=== PATIENT | female | born 1975 | race African-American/Black ===

== ENCOUNTER 2019-07-27 08:06 | Inpatient (IN) ==
[2019-07-27 08:54] LABS: BILIRUBIN URINE NEGATIVE (NEGATIVE); BLOOD URINE 3+ (NEGATIVE); CLARITY SL. CLOUDY (CLEAR); COLOR YELLOW; GLUCOSE URINE NEGATIVE (NEGATIVE); KETONE URINE 3+(Large) mg/dL (NEGATIVE); LEUKOCYTES URINE 1+ (NEGATIVE); NITRITE URINE NEGATIVE (NEGATIVE); PH URINE 6.5; PROTEIN URINE 1+(30 mg/dL) mg/dL (NEGATIVE); UROBILINOGEN URINE 1 mg/dL
[2019-07-27 08:56] LABS: BASO# 0.01 X1000 (0.0-0.2); BASO% 0.1 % (0.0-0.8); EOS# 0.04 X1000 (0.0-0.7); EOS% 0.3 % (0.0-10.0); HEMATOCRIT 39.5 % (37.0-47.0); HEMOGLOBIN 12.6 g/dL (12.0-16.0); IMM GRAN# 0.03 X1000 (0.0-0.04); IMM GRAN% 0.2 % (0.0-0.5); LYMPH# 1.72 X1000 (1.2-3.4); LYMPH% 12.3 % (20.5-51.1); MCH 28.5 PG (27-31); MCHC 31.9 g/dL (33-37); MCV 89.4 FL (81-99); MONO# 0.87 X1000 (0.11-0.59); MONO% 6.2 % (1.7-9.3); MPV 10.2 FL (7.4-10.4); NEUT# 11.32 X1000 (1.4-6.5); NEUT% 80.9 % (42.2-75.2); PLT 329 X1000 (130-400); RBC 4.42 XMIL (4.2-5.4); RDW 12.6 % (11.5-14.5); WBC 13.99 X1000 (4.8-10.8)
[2019-07-27 09:00] LABS: URINE BACTERIA 4+ /HFP; URINE CAST NONE SEEN /LPF; URINE CRYSTAL NONE SEEN /HPF; URINE EPITHELIAL CELLS >10 /HPF (<10); URINE RBC <10 /HPF (<10); URINE SOURCE CLEAN CATCH; URINE WBC TNTC /HPF (<10); URINE YEAST NONE SEEN /HPF
[2019-07-27 09:04] LABS: AGAP 13; ALBUMIN 3.8 g/dL (3.5-5.0); ALKALINE PHOSPHATASE 85 U/L (32-104); BUN 11 mg/dL (8-22); CALCIUM 9.2 mg/dL (8.8-10.2); CHLORIDE 102 mmol/L (98-107); COSMO 271; CREATININE 0.7 mg/dL (0.5-0.9); ESTIMATED GFR > 60; GLUCOSE 95 mg/dL (70-104); GOT 12 U/L (10-30); GPT 12 U/L (10-36); LIPASE 36 U/L (13-60); POTASSIUM 4.1 mmol/L (3.5-5.1); SODIUM 136 mmol/L (136-145); TCO2 21 mmol/L (25-35); TOTAL PROTEIN 7.7 g/dL (6.3-8.3)
[2019-07-27 09:16] LABS: BANDS 1 % (0-1); LYMPHS 11 % (21-51); MONO 4 % (1-9); SEGS 84 % (42-75)
--- NOTE | 2019-07-27 10:26 | Diag Imaging Result Doc PS360 ---
EXAM: CT ABD/PELVIS W/IV CONT ONLY HISTORY: LLQ abdo pain TECHNIQUE: This exam was performed using automated exposure control, adjustment of mA or kV according to patient size, and/or use of iterative reconstruction technique. COMPARISON: None. FINDINGS: Lung bases: Unremarkable. Hepatobiliary: There is a focal hypodensity measuring 3.3 cm within the left lobe of the liver. This is indeterminate and could be inflammatory or neoplastic. Consider follow-up MRI with contrast. No intrahepatic or extrahepatic biliary ductal dilatation is identified. No calcified gallstones are seen.. There is diffuse wall thickening involving the sigmoid colon with moderate pericolonic inflammatory change and moderate free pelvic fluid consistent with acute diverticulitis. No abscess. No evidence for bowel obstruction. Pancreas/Adrenal glands/Spleen: Normal size and enhancement. No cysts or solid masses are appreciated. Kidneys: No nephrolithiasis or hydronephrosis is appreciated. Normal bilateral enhancement. No suspicious masses. Retroperitoneum: Normal caliber aorta. No lymphadenopathy. Appendix: Normal. No evidence for acute appendicitis. No pneumoperitoneum is identified. Pelvis: Reproductive organs show no acute abnormality. Urinary bladder is unremarkable. No acute bony abnormality is demonstrated. IMPRESSION: 1.Acute sigmoid diverticulitis. No evidence for free air or abscess. 2. Moderate free pelvic fluid. 3. Indeterminate lesion left lobe of the liver suggestive of focal hepatitis or infiltrative process. Cannot exclude neoplasm. Correlate clinically. Consider follow-up hepatic MRI with contrast. Electronically signed by Dolores Schuster 07/27/2019 10:24 AM
--- NOTE | 2019-07-27 11:11 | PROVIDER DOCUMENTATION ---
This chart was entered by Dalila Reyes Scribe, acting as scribe for Yadiel Sanchez MD. HPI-Abdominal Pain/GI Problem - General Chief Complaint: Abdominal Pain Stated Complaint: STOMACH PAIN Time Seen by Provider: 07/27/19 08:17 Source: patient Allergies/Adverse Reactions: Patient Allergies Allergy/AdvReac Type Severity Reaction Status Date / Time Penicillins Allergy HIVES Verified 03/29/19 17:14 Sulfa (Sulfonamide Allergy SWELLING Verified 03/29/19 17:14 Antibiotics) Home Medications: Home Medication List Medication Instructions Recorded Confirmed Last Taken Type Ciprofloxacin HCl [Cipro] 250 mg PO BID 07/27/19 07/27/19 Unknown History Metronidazole [Flagyl] 500 mg PO BID 07/27/19 07/27/19 Unknown History - History of Present Illness-ABD Nature of Presenting Problems: Patient is a 43 year old female who presents with LLQ abdominal pain. States nausea with abdominal pain. Reports symptoms have been present for 3 days. Denies vomiting and diarrhea. History of diverticulitis. Abdominal Pain Onset Location: reports: LLQ Pain Radiation: reports: no radiation Quality of Pain: reports: aching Severity in ED: reports: moderate Onset/Duration: reports: 3 days ago Timing: reports: still present, getting worse Activities at Onset: reports: light activity Modifying Factors: improves with: nothing Associated Symptoms: reports: nausea Last BM: this morning Bruising or Bleeding Gums?: No Similar Symptoms Previously?: Yes Recently seen or treated by another doctor?: No Review of Systems - Adult - REVIEW OF SYSTEMS - ADULT Constitutional: reports: no symptoms reported. denies: chills, fever, fatique Eyes: reports: no symptoms reported Ears, Nose, Mouth & Throat: reports: no symptoms reported Cardiovascular: reports: no symptoms reported Respiratory: reports: no symptoms reported Gastrointestinal: reports: see HPI, abdominal pain (LLQ), nausea. denies: diarrhea, vomiting Genitourinary: reports: no symptoms reported Musculoskeletal: reports: no symptoms reported Integumentary: reports: no symptoms reported Neurological: reports: no symptoms reported Psychiatric: reports: no symptoms reported Endocrine: reports: no symptoms reported Hematologic/Lymphatic: reports: no symptoms reported Allergic/Immunologic: reports: no symptoms reported All Other Systems: Reviewed and Negative Past History - Adult - PAST MEDICAL HISTORY-ADULT Review of Records: reports: Old Records Reviewed, Social history reviewed & non- contributory. Major Childhood Illnesses: reports: denies history Cardiovascular: reports: HTN Respiratory: reports: denies history Gastrointestinal: reports: other (diverticulitis). denies: colitis Obstetrical/Gynecological: reports: denies history Genitourinary: reports: denies history Musculoskeletal: reports: denies history Neurological: reports: denies history Psychiatric: reports: denies history Endocrine/Immune: reports: denies history Other Conditions: reports: denies history - PRIOR SURGERIES/PROCEDURES Surgical/Procedure History: reports: none - IMMUNIZATION STATUS Childhood Immunizations: See Nurse Assessment Flu Vaccine: See Nurse Assessment - FAMILY HISTORY Family History: reviewed, not pertinent, cancer (pancreatic and liver cancer) - SOCIAL HISTORY Smoking: denies Substance Use: alcohol Alcohol Use Frequency: occasionally Physical Exam-General - PHYSICAL EXAM-ADULT Initial Vital Signs Reviewed: Yes - CONSTITUTIONAL General Appearance: alert, mild distress. negative: lethargic - HEAD, EARS, NOSE, MOUTH & THROAT HENMT: normocephalic/atraumatic, moist mucous membranes. negative: angioedema - RESPIRATORY Respiratory: chest non-tender, lungs clear, normal breath sounds. negative: crackles, rhonchi, stridor - CARDIOVASCULAR Cardiovascular: normal peripheral pulses, regular rate, rhythm. negative: tachycardia - GASTROINTESTINAL (ABDOMEN) Abdominal Exam: normal bowel sounds, soft, tenderness (moderate tenderness to LLQ). negative: guarding, rigid - MUSCULOSKELETAL Extremity: normal inspection. negative: deformity, erythema, swelling - SKIN Integumentary: normal color, normal turgor, warm/dry. negative: diaphoresis, ecchymosis, jaundice, rash - NEUROLOGIC Neurologic: grossly normal. negative: aphasia, facial droop - PSYCHIATRIC Psych/Mental Status: normal mood/affect, oriented x 3. negative: anxious Progress - PLAN OF CARE/RESULTS Progress/Plan/Lab Results: Vital Signs - 8 hr 07/27/19 08:12 Temperature 98 F Pulse Rate 118 H Respiratory Rate 18 Blood Pressure 128/86 O2 Sat by Pulse Oximetry 97 Bedside Urine ED: Urine Bedside Start: 07/27/19 08:15 Freq: ORDERED Status: Active Protocol: Activity Type Activity Date Activity User E-Sign Co-Sign Detail Recorded Client Recorded Date Recorded By Document 07/27/19 08:35 [id number] 07/27/19 08:35 [id number] 07/27/19 08:35 Point of Care [Bedside Point of Care] -Lot # [id number] - Results Negative -Control Line Visible? Yes Laboratory Results - last 24 hr 07/27/19 07/27/19 07/27/19 08:29 08:32 08:32 WBC 13.99 H RBC 4.42 Hgb 12.6 Hct 39.5 MCV 89.4 MCH 28.5 MCHC 31.9 L RDW Std Deviation 12.6 Plt Count 329 MPV 10.2 Immature Gran % (Auto) 0.2 Neut % (Auto) 80.9 H Lymph % (Auto) 12.3 L [place] % (Auto) 6.2 Eos % (Auto) 0.3 Baso % (Auto) 0.1 Immature Gran # (Auto) 0.03 Neut # (Auto) 11.32 H Lymph # (Auto) 1.72 [place] # (Auto) 0.87 H Eos # (Auto) 0.04 Baso # (Auto) 0.01 Segmented Neutrophils 84 H Band Neutrophils 1 Lymphocytes 11 L Monocytes 4 Sodium Potassium Chloride Carbon Dioxide Anion Gap BUN Creatinine Estimated GFR/1.73 m2 BUN/Creatinine Ratio Glucose Calculated Osmolality Calcium Total Bilirubin AST ALT Alkaline Phosphatase Total Protein Albumin Globulin Albumin/Globulin Ratio Amylase 79 Lipase Urine Source CLEAN CATCH Urine Color YELLOW Urine Clarity SL. CLOUDY A Urine pH 6.5 Ur Specific [place] 1.020 Urine Protein 1+(30 mg/dL) A Urine Ketones 3+(Large) A Urine Blood 3+ A Urine Nitrite NEGATIVE Urine Bilirubin NEGATIVE Urine Urobilinogen 1 Urine Microscopic RBC <10 Urine WBC 1+ A Urine Microscopic WBC TNTC A Ur Epithelial Cells >10 A Urine Crystals NONE SEEN Urine Bacteria 4+ Urine Casts NONE SEEN Urine Yeast NONE SEEN Urine Glucose NEGATIVE 07/27/19 08:32 WBC RBC Hgb Hct MCV MCH MCHC RDW Std Deviation Plt Count MPV Immature Gran % (Auto) Neut % (Auto) Lymph % (Auto) [place] % (Auto) Eos % (Auto) Baso % (Auto) Immature Gran # (Auto) Neut # (Auto) Lymph # (Auto) [place] # (Auto) Eos # (Auto) Baso # (Auto) Segmented Neutrophils Band Neutrophils Lymphocytes Monocytes Sodium 136 Potassium 4.1 Chloride 102 Carbon Dioxide 21 L Anion Gap 13 BUN 11 Creatinine 0.7 Estimated GFR/1.73 m2 > 60 BUN/Creatinine Ratio 16 Glucose 95 Calculated Osmolality 271 Calcium 9.2 Total Bilirubin 0.30 AST 12 ALT 12 Alkaline Phosphatase 85 Total Protein 7.7 Albumin 3.8 Globulin 4.0 Albumin/Globulin Ratio 1.0 Amylase Lipase 36 Urine Source Urine Color Urine Clarity Urine pH Ur Specific [place] Urine Protein Urine Ketones Urine Blood Urine Nitrite Urine Bilirubin Urine Urobilinogen Urine Microscopic RBC Urine WBC Urine Microscopic WBC Ur Epithelial Cells Urine Crystals Urine Bacteria Urine Casts Urine Yeast Urine Glucose Orders Category Date Time Status ED: Urine Bedside ORDERED Care 07/27/19 08:[address] ABD/PELVIS W/IV CONT ONLY [CT] Stat Exams 07/27/19 08:27 Ordered AMYLASE [CHEM] Stat Lab 07/27/19 08:32 Completed CBC WITH DIFF [HEME] Stat Lab 07/27/19 08:32 Completed COMPREHENSIVE METABOLIC PANEL [CHEM] Stat Lab 07/27/19 08:32 Completed LIPASE [CHEM] Stat Lab 07/27/19 08:[address] W/POSS RFLX CULT [URINALYSIS] Stat Lab 07/27/19 08:29 Completed URINE CULTURE [RM] Routine Lab 07/27/19 09:00 Ordered Result Diagrams: 07/27/19 08:32 07/27/19 08:32 - CT/MRI 1 CT Study: Abdomen, Pelvis Impression: See EMR Report ( EXAM: CT ABD/PELVIS W/IV CONT ONLY HISTORY: LLQ abdo pain TECHNIQUE: This exam was performed using automated exposure control, adjustment of mA or kV according to patient size, and/or use of iterative reconstruction technique. COMPARISON: None. FINDINGS: Lung bases: Unremarkable. Hepatobiliary: There is a focal hypodensity measuring 3.3 cm within the left lobe of the liver. This is indeterminate and could be inflammatory or neoplastic. Consider follow-up MRI with contrast. No intrahepatic or extrahepatic biliary ductal dilatation is identified. No calcified gallstones are seen.. There is diffuse wall thickening involving the sigmoid colon with moderate pericolonic inflammatory change and moderate free pelvic fluid consistent with acute diverticulitis. No abscess. No evidence for bowel obstruction. Pancreas/Adrenal glands/Spleen: Normal size and enhancement. No cysts or solid masses are appreciated. Kidneys: No nephrolithiasis or hydronephrosis is appreciated. Normal bilateral enhancement. No suspicious masses. Retroperitoneum: Normal caliber aorta. No lymphadenopathy. Appendix: Normal. No evidence for acute appendicitis. No pneumoperitoneum is identified. Pelvis: Reproductive organs show no acute abnormality. Urinary bladder is unremarkable. No acute bony abnormality is demonstrated. IMPRESSION: 1.Acute sigmoid diverticulitis. No evidence for free air or abscess. 2. Moderate free pelvic fluid. 3. Indeterminate lesion left lobe of the liver suggestive of focal hepatitis or infiltrative process. Cannot exclude neoplasm. Correlate clinically. Consider follow-up hepatic MRI with contrast. Electronically signed by Dolores Schuster 07/27/2019 10:24 AM 07/27/19 1024 Interpreting Physician: Dolores Schuster MD Dictated Date/Time: 07/27/19 1016 cc: Yadiel Sanchez MD; None,PCP) - CONSULTS/PCP/HOSPITALIST Notification #1 *Consult/PCP/Hospitalist*: Dr. Spencer Time Discussed: 11:08 Reason/Comments: Dr. Sanchez consulted with Dr. Spencer about patient. Consult Disposition: Admit Departure - Departure Date of Disposition Decision: 07/27/19 Time of Disposition Decision: 11:08 DIAGNOSIS: Sigmoid diverticulitis, UTI (urinary tract infection) Disposition: ADMITTED INPATIENT 09 Certified Medical Emergency: Emergent Condition: Fair Referrals and Follow-Ups: None,PCP [Primary Care Provider] - - Critical Care Note This patient required my direct & personal management of CC.: No Attestation - Physician/ NEGRO Attestation Patient care was provided by Advanced Practice Provider:: No The physician spent face to face time with patient:: Yes Advanced Practice Provider documentation review:: Supervising physician onsite and consulted in the evaluation and care of this patient. The physician did have a face to face encounter with the patient. This chart was documented by the indicated scribe, (Dalila Reyes Scribe) and accurately reflects the services I performed and decisions made by me, Yadiel Cali MD, as attested by the provider's signature.
[2019-07-27] MEDS ORDERED: LEVAQUIN 500 MG/D5W 500 MG/100 ML IVPB IV ONE (11:12)
[2019-07-27] MEDS ORDERED: NS 1,000 ML IV ONE ×2 (11:13→12:28)
[2019-07-27] MEDS ORDERED: NORCO-7.5 PO PRN (11:25)
[2019-07-27] MEDS ORDERED: TYLENOL PO PRN (11:25)
[2019-07-27] MEDS ORDERED: NS 1,000 ML IV PRN (11:25)
[2019-07-27] MEDS ORDERED: ZOFRAN IV PRN (11:25)
[2019-07-27 12:53] LABS: INR 0.95; PROTIME 13.1 Seconds (11.0-16.0)
[2019-07-27 12:54] LABS: PTT 27.5 Seconds (22.3-41.8)
--- NOTE | 2019-07-27 14:21 | Diag Imaging Result Doc PS360 ---
EXAM: CHEST-1 VIEW HISTORY: r/o sepsis TECHNIQUE: Single view COMPARISON: 03/31/2017 FINDINGS: The lungs are well expanded. The heart is not enlarged. The vessels are not distended. There are no infiltrates. No effusion identified. Calcified mediastinal nodes. IMPRESSION: No pneumonia. Electronically signed by Quoc Bryant 07/27/2019 2:19 PM
[2019-07-27] MEDS: PRILOSEC PO SCH ×2 (14:58→22:29)
[2019-07-27] MEDS: MAXIPIME 1 GM in NS 50 ML IV SCH (14:59)
[2019-07-27] MEDS: FLAGYL 500 MG/NS 500 MG/100 ML IVPB IV SCH ×2 (14:59→22:30)
--- NOTE | 2019-07-27 15:33 | Diag Imaging Result Doc PS360 ---
EXAM: MRI ABDOMEN W/WO CONTRAST HISTORY: liver lesion TECHNIQUE: Routine axial and coronal images with and without contrast. COMPARISON: Prior CT scan of the abdomen 07/27/2019, 03/29/2019, 07/23/2018, 07/09/2018 FINDINGS: This evaluation was performed for further evaluation of a subtle attenuation abnormality within the lateral segment left lobe of the liver best appreciated with liver windows. Multiple sequences of the liver with and without contrast and fat saturation do not demonstrate signal abnormality, a focal mass or abnormal enhancement within the left lobe of the liver in the region of the CT abnormality. There is some obscuration of the left lobe of the liver due to artifact from adjacent bowel particularly in the axial plane which limits evaluation. In retrospect, the abnormal area of attenuation was likely present on the prior examinations from 2018 and is probably unchanged. Recommend correlation with liver function testing. Due to the presence of bowel gas artifact on the MRI, dynamic CT could as well as ultrasound with attention to the left lobe with also be considered if indicated clinically. The kidneys and pancreas appear unremarkable. IMPRESSION: No discrete abnormality within the left lobe liver is appreciated on the MRI examination although the region is obscured on many sequences due to susceptibility artifact from bowel gas. The abnormality seen on today's CT scan of the abdomen/pelvis was probably present on a CT scan from 2018.. Recommend correlation with liver function testing, and follow-up ultrasound and/ or dynamic hepatic CT with contrast if indicated. Electronically signed by Dolores Schuster 07/27/2019 3:30 PM
--- NOTE | 2019-07-27 16:36 | HISTORY AND PHYSICAL ---
PRIMARY CARE PROVIDER: No one. CHIEF COMPLAINT: Abdominal pain, mostly in the left lower quadrant, and diarrhea. HISTORY OF PRESENT ILLNESS: Ms. Desiree Barajas is a 43-year-old female with a medical history of diverticulitis every 6 months and colitis. She used to see Dr. De Jesus in the past. Her last colonoscopy was August of 2018. States that it started on Saturday. She was starting to have more than 4 bowel movements in a day. No discoloration, bloody or black tarry stools, just multiple bowel movements and left lower quadrant abdominal pain. She started to throw up on Saturday when she would eat. No vomiting yesterday, but decided to come in. She did have some chills but no fever. She was found to have a white blood cell count of 13,000, urinary tract infection, and then her imaging showed that she had acute sigmoid diverticulitis, but it did also show an indeterminate lesion in the left lobe of the liver suggestive of focal hepatitis or infiltrative process, so we are getting an MRI to evaluate that. She will be started on IV antibiotics, IV fluids, clear liquids as tolerated. This past Saturday she was seen at [facility] where she was given a prescription for Flagyl and Cipro. She has taken those for 2 days and never developed a rash. However, while she was here, once Levaquin was initiated she started developing a rash along the right arm that was red and elevated. So that antibiotic was stopped and a different 1 ordered. PAST MEDICAL HISTORY: 1. Colitis. 2. Diverticulitis about every 6 months. SURGICAL HISTORY: None but her last colonoscopy was August of [address] De Jesus's location. SOCIAL HISTORY: Denies tobacco abuse or history of tobacco abuse. Rarely has alcohol intake, maybe twice in a year. Denies any illicit drug use. 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 FAMILY HISTORY: Mother had diabetes and coronary disease. Father had cancer and grandmother with either liver or pancreatic cancer. ALLERGIES: Penicillin, sulfa, and possibly Levaquin. HOME MEDICATIONS: The only medications listed are the Flagyl and Cipro that she had been prescribed 2 days ago. REVIEW OF SYSTEMS: Fourteen point review of systems are complete and all were negative except for those mentioned above in the HPI. PHYSICAL EXAMINATION: VITAL SIGNS: Temperature 98.3 degrees, heart rate 86, respiratory rate 18, blood pressure 147/89, O2 saturation 98% on room air, 5 feet 1 inch tall, 203 pounds, BMI is 38.4. GENERAL: Ms. Desiree Barajas is a 43-year-old female in no acute distress. Able to answer questions appropriately. HEENT: Atraumatic, normocephalic. Pupils equal, round, reactive to light. Extraocular movements intact. Mucous membranes are dry. NECK: Trachea midline. CARDIOVASCULAR: S1, S2. Regular rate and rhythm. No rubs, gallops, murmurs. No lower extremity edema. There are +2 dorsalis and radial pulses. Negative JVD or carotid bruits. PULMONARY: Clear to auscultation. Bilateral breath sounds. No accessory muscle use or work of breathing noted. GI: Soft. Tender in the left lower quadrant. Positive bowel sounds x4. EXTREMITIES: Moves all extremities equally. Full range of motion. NEUROLOGIC: A O x3. Follows commands. Sensory is intact. SKIN: Warm, dry, intact. LABORATORY DATA: White blood cells 13,000, hemoglobin 12, hematocrit 39, platelet count 329,000. INR 0.95, PTT is 27.5. Sodium 136, potassium 4.1, BUN 11, creatinine 0.7, glucose 95, calcium 9.2, bilirubin 0.30, AST 12, ALT 12. CK 50. Troponin less than 0.01. Albumin 3.8, amylase 79, lipase 36, lactate 0.8. Urinalysis cloudy, 1+ protein, 3+ ketones, 3+ blood, 1+ white blood cells, too numerous to count microscopic white blood cells, greater than 10 epithelial cells, and 4+ bacteria. IMAGING: Abdominal and pelvic CT: Acute sigmoid diverticulitis, moderate free pelvic fluid, and indeterminate lesion of the left lobe of the liver suggestive of focal hepatitis or infiltrative process, cannot exclude neoplasm. Correlate clinically and consider followup hepatic MRI with contrast. ASSESSMENT AND PLAN: 1. Acute diverticulitis of the sigmoid colon. Apparently, she has these spells about every 6 months. She was initially started on Flagyl and Levaquin and on Saturday she was started on oral Flagyl and oral Cipro without complications. But after Levaquin was started here, she developed a rash along the right arm, so it was stopped and cefepime was ordered. We will do clear liquids for now. 2. Deep venous thrombosis prophylaxis. SCDs. 3. CT reported a left lobe of the liver having an indeterminate lesion that is suggestive of focal hepatitis or infiltrative process and could not exclude neoplasm. It recommended a hepatic MRI with contrast and so that has been ordered and we will follow up on those results. Dictated by PANFILO Meade for Nelson Spencer MD cc: PANFILO Meade MD
--- NOTE | 2019-07-27 16:42 | HISTORY AND PHYSICAL ---
ADDENDUM TO HISTORY AND PHYSICAL: ASSESSMENT/PLAN: Urinary tract infection, who is only symptoms is dark urine. Cefepime should cover any type of bacterial infection in the bladder and we will follow up with urine culture. Lactate is normal. Dictated by PANFILO Meade for Nelson Spencer MD cc: PANFILO Meade MD
--- NOTE | 2019-07-27 21:44 | HISTORY AND PHYSICAL ---
ADDENDUM: Patient seen and examined by myself. Full note dictated and discussed with nurse practitioner. Patient presented to the hospital with left lower quadrant abdominal pain for the past 2 or 3 days. This continue to worsen. It has become significant. Currently, she is awake and alert. She is in no distress from a respiratory standpoint, but she is in obvious pain. Temperature degrees 98, pulse 115, BP 128/86, saturation 97% on room air. The patient has a white count of 13.9. We are going to admit her to the hospital, treat her for sigmoid diverticulitis and a probable urinary tract infection, place her on antibiotics and we will follow. cc: Nelson Spencer MD
[2019-07-28] MEDS: MAXIPIME 1 GM in NS 50 ML IV SCH ×2 (00:34→12:54)
[2019-07-28] MEDS: FLAGYL 500 MG/NS 500 MG/100 ML IVPB IV SCH ×4 (02:25→22:26)
[2019-07-28 02:47] LABS: BASO# 0.02 X1000 (0.0-0.2); BASO% 0.2 % (0.0-0.8); EOS# 0.07 X1000 (0.0-0.7); EOS% 0.6 % (0.0-10.0); HEMATOCRIT 35.2 % (37.0-47.0); HEMOGLOBIN 11.2 g/dL (12.0-16.0); IMM GRAN# 0.02 X1000 (0.0-0.04); IMM GRAN% 0.2 % (0.0-0.5); LYMPH# 1.95 X1000 (1.2-3.4); LYMPH% 16.2 % (20.5-51.1); MCH 28.9 PG (27-31); MCHC 31.8 g/dL (33-37); MONO# 0.96 X1000 (0.11-0.59); MPV 10.1 FL (7.4-10.4); NEUT# 9.04 X1000 (1.4-6.5); NEUT% 74.8 % (42.2-75.2); PLT 276 X1000 (130-400); RBC 3.87 XMIL (4.2-5.4); RDW 12.4 % (11.5-14.5); WBC 12.06 X1000 (4.8-10.8)
[2019-07-28 02:58] LABS: AGAP 9; ALBUMIN 3.1 g/dL (3.5-5.0); ALKALINE PHOSPHATASE 68 U/L (32-104); BUN 7 mg/dL (8-22); CALCIUM 8.4 mg/dL (8.8-10.2); CHLORIDE 104 mmol/L (98-107); COSMO 264; CREATININE 0.7 mg/dL (0.5-0.9); ESTIMATED GFR > 60; GLUCOSE 94 mg/dL (70-104); GOT 10 U/L (10-30); GPT 10 U/L (10-36); MAGNESIUM 1.9 mg/dL (1.5-2.7); POTASSIUM 4.1 mmol/L (3.5-5.1); SODIUM 133 mmol/L (136-145); TCO2 21 mmol/L (25-35); TOTAL BILIRUBIN < 0.15 mg/dL (0.20-1.00); TOTAL PROTEIN 6.5 g/dL (6.3-8.3)
[2019-07-28] MEDS: PRILOSEC PO SCH ×2 (06:38→22:26)
--- NOTE | 2019-07-28 11:56 | PROGRESS NOTE ---
DATE: 07/28/2019 SUBJECTIVE: The patient reports feeling fine. No abdominal pain at rest. No fever or chills. OBJECTIVE: Vital Signs: Temperature 98.3 degrees, heart rate 65, respiratory rate 18, blood pressure 143/88, O2 saturation 100% on room air. General: This is a 43-year-old female, lying in bed in no acute distress. Cardiovascular: S1, S2 heard. No murmurs, gallops, or rubs. Regular rate and rhythm. Respiratory: Clear bilaterally to auscultation. No work of breathing or using accessory muscles. Abdomen: Soft, nontender to palpation. Bowel sounds present. No organomegaly. Extremities: No clubbing, cyanosis, or edema. Peripheral pulses present in both legs. Neurological: The patient is alert and oriented x3. Moves all 4 extremities. LABORATORY DATA: Reviewed. ASSESSMENT AND PLAN: 1. Acute diverticulitis of the sigmoid colon. Will continue with Flagyl and cefepime. The patient has developed allergic reaction to Levaquin. Clinically, the patient is doing fine with just mild generalized tenderness to palpation around the epigastric area. My plan is to continue with the current management, and if she is feeling better tomorrow and white cell count is better, will let her go with metronidazole by mouth, and also cefdinir as well. 2. Liver lesion. MRI of the liver did not show any important abnormality. 3. Disposition. As we mentioned before, the patient is doing fine. Tomorrow, will let her go. cc: Solo Yap MD
[2019-07-28] MEDS ORDERED: LEVAQUIN 500 MG/D5W 500 MG/100 ML IVPB IV SCH (12:00)
[2019-07-29] MEDS: MAXIPIME 1 GM in NS 50 ML IV SCH (01:48)
[2019-07-29] MEDS: FLAGYL 500 MG/NS 500 MG/100 ML IVPB IV SCH ×2 (02:50→09:39)
[2019-07-29 05:41] LABS: BASO# 0.02 X1000 (0.0-0.2); BASO% 0.2 % (0.0-0.8); EOS% 1.2 % (0.0-10.0); HEMATOCRIT 35.4 % (37.0-47.0); HEMOGLOBIN 11.4 g/dL (12.0-16.0); IMM GRAN# 0.02 X1000 (0.0-0.04); IMM GRAN% 0.2 % (0.0-0.5); LYMPH% 19.7 % (20.5-51.1); MCH 28.9 PG (27-31); MCHC 32.2 g/dL (33-37); MCV 89.6 FL (81-99); MONO# 0.77 X1000 (0.11-0.59); MONO% 8.9 % (1.7-9.3); MPV 10.1 FL (7.4-10.4); NEUT# 6.01 X1000 (1.4-6.5); NEUT% 69.8 % (42.2-75.2); PLT 328 X1000 (130-400); RBC 3.95 XMIL (4.2-5.4); RDW 12.4 % (11.5-14.5); WBC 8.62 X1000 (4.8-10.8)
[2019-07-29 06:03] LABS: AGAP 10; ALBUMIN 3.4 g/dL (3.5-5.0); ALKALINE PHOSPHATASE 78 U/L (32-104); BUN 12 mg/dL (8-22); CHLORIDE 107 mmol/L (98-107); COSMO 278; CREATININE 0.9 mg/dL (0.5-0.9); ESTIMATED GFR > 60; GLUCOSE 106 mg/dL (70-104); GOT 11 U/L (10-30); GPT 10 U/L (10-36); POTASSIUM 4.2 mmol/L (3.5-5.1); SODIUM 139 mmol/L (136-145); TCO2 22 mmol/L (25-35); TOTAL BILIRUBIN < 0.15 mg/dL (0.20-1.00); TOTAL PROTEIN 6.6 g/dL (6.3-8.3)
[2019-07-29] MEDS: PRILOSEC PO SCH (06:54)
[2019-07-29 07:46] VITALS: BP 146/89
[2019-07-29 14:26] LABS: HEPATITIS PROFILE ACUTE SEE COMMENTS
--- NOTE | 2019-07-30 14:25 | DISCHARGE SUMMARY ---
ADMISSION DATE: 07/27/2019 DISCHARGE DATE: 07/29/2019 ADMISSION DIAGNOSES: 1. Acute diverticulitis of the sigmoid colon. 2. CT report of left lower lobe liver indeterminate lesion, which was negative on MRI. 3. Urinary tract infection. DISCHARGE DIAGNOSES: 1. Acute diverticulitis of the sigmoid colon. 2. Liver lesion but negative on MRI. 3. Urinary tract infection. CONSULTATIONS: None. SURGERIES AND PROCEDURES: None. HOSPITAL COURSE: Ms Michaela Barajas is a 43-year-old female, medical history of diverticulitis about every 6 months with colitis. She has seen Dr. De Jesus in the past. Her last colonoscopy was 2017. Apparently symptoms started on Saturday before admit. She was started having multiple bowel movements, but no discoloration other than normal stool color, but also developed left lower quadrant abdominal pain, started throwing up on the Saturday before coming in and was having chills but no fever. Her white count was elevated at 13,000. She did show signs of urinary tract infection along with imaging showing that she had acute sigmoid diverticulitis. Subsequently, the CT also showed a left lobe liver mass and so that was imaged with an MRI which did not show a mass. She was started on Flagyl and Cipro from [facility]. She had at least taken 2 days worth of medication. She was started on Levaquin here, but developed a rash on her arm and antibiotics were changed in course. She was also on Flagyl. Symptoms improved. She was discharged home. DISCHARGE VITAL SIGNS: Temperature 98.6 degrees, pulse rate 75, respiratory rate 146/89, O2 saturation 99% on room air. LABORATORY DATA: White blood cells 8000, hemoglobin 11, hematocrit 35, platelet count 328,000. Sodium 139, potassium 4.2, BUN 12, creatinine 0.9, glucose 106, calcium 9.0, magnesium 2.0, bilirubin is less than 0.15, AST 11, ALT 10, albumin 3.4, and micro urine showed mixed vi, no growth. IMAGING: Abdominal pelvic CT, acute sigmoid diverticulitis, moderate free pelvic fluid, and also showed an indeterminate lesion of the left lobe of the liver that was suggestive of focal hepatitis or infiltrative process, but could not exclude neoplasm. So, she had an MRI which showed no discrete abnormality within the left lobe of the liver. Chest x-ray was no pneumonia and there was no other imaging. DISCHARGE MEDICATIONS: 1. Cefdinir 300 mg p.o. twice daily. 2. Flagyl 500 mg p.o. twice daily. 3. Lipan 7.5, 1 to 2 tabs p.o. every 4 hours. DISCHARGE DIET: GI soft. DISCHARGE ACTIVITY: As tolerated. DISCHARGE INSTRUCTIONS: If your condition changes, contact physician and/or return to emergency department. Changes may include, but not limited to shortness of breath, increased fatigue, excessive bleeding, unexplained weight loss or gain, unmanageable pain, signs or symptoms of infection. PHYSICIAN FOLLOWUP: Primary care provider. DISCHARGE DISPOSITION: Home. Dictated by PANFILO Meade for Solo Yap MD Addendum: Patient seen and examined by myself. Agree with PANIFLO note. It reflects my assessment and plan. Patient is being released in stable to home. Will be seen by PCP in a week. cc: PANFILO Meade MD [facility]
== END 2019-07-29 12:20 | disposition home or self-care (01) | DRG 392 ==
LOC: P.ED 08:06 → P.MEDSURG 08:07 → SUATTDRO 08:07
PROVIDERS: ATTEND Internal Medicine